=== PATIENT | female | born 1950 | race Two or more races ===

== ENCOUNTER 2018-10-08 23:16 | Emergency (ER) | payer OTHER ==
[~2018-10-08] VITALS: Ht 149.9 cm; Wt 67.6 kg
[2018-10-08] MEDS ORDERED: CALCIUM600 MG (23:46)
[2018-10-08] MEDS ORDERED: NEURONTIN300 MG (23:47)
[2018-10-08] MEDS ORDERED: ZOCOR20 MG (23:47)
[2018-10-08] MEDS ORDERED: VITAMIN D31000 UNI2 (23:47)
[2018-10-08] MEDS ORDERED: ALENDRONATE SOD35 MG (23:48)
[2018-10-09] MEDS ORDERED: VASOFLEX FORTE1 EACH PO (01:38)
== END 2018-10-09 02:27 | disposition home or self-care (01) ==
LOC: ER 23:16
DX: R25.2 Cramp and spasm (principal)

== ENCOUNTER 2019-01-16 22:05 | Inpatient (IN) | payer OTHER ==
[~2019-01-16] VITALS: Ht 149.9 cm; Wt 68.0 kg
[~2019-01-16 22:05] MED LIST: ALENDRONATE SOD35 MG; CALCIUM600 MG; NEURONTIN300 MG; VASOFLEX FORTE1 EACH PO; VITAMIN D31000 UNI2; ZOCOR20 MG
[2019-01-23] MEDS ORDERED: ULTRACET PO (13:56)
[2019-01-23] MEDS ORDERED: AMOX1TAB5 PO (13:56)
[2019-01-23] MEDS ORDERED: MAXFE CAPLET1 EACH PO (14:02)
== END 2019-01-23 17:10 | disposition home or self-care (01) | DRG 341 ==
LOC: ER 22:05 → SURG 01-17 02:09 → ICU 01-17 02:09 → SURH 01-17 02:09 → ICU 01-17 21:00 → SURG 01-20 14:20 → SURH 01-20 16:14
PROVIDERS: ADMIT Surgery
PROC: 0WJG0ZZ Inspection of Peritoneal Cavity, Open Approach (ICD-10-PCS; 2019-01-17)
PROC: B246ZZZ Ultrasonography of Right and Left Heart (ICD-10-PCS; 2019-01-17)
PROC: BW4GZZZ Ultrasonography of Pelvic Region (ICD-10-PCS; 2019-01-17)
PROC: 0DTJ0ZZ Resection of Appendix, Open Approach (ICD-10-PCS; principal; 2019-01-17 07:00)
PROC: 30233N1 Transfusion of Nonautologous Red Blood Cells into Peripheral Vein, Percutaneous Approach (ICD-10-PCS; 2019-01-18)
DX: K35.890 Other acute appendicitis without perforation or gangrene (principal); K66.1 Hemoperitoneum; D62 Acute posthemorrhagic anemia; I95.81 Postprocedural hypotension; K66.0 Peritoneal adhesions (postprocedural) (postinfection); N20.0 Calculus of kidney; E87.6 Hypokalemia

== ENCOUNTER 2021-02-14 01:39 | Emergency (ER) | payer OTHER ==
[~2021-02-14] VITALS: Ht 152.4 cm; Wt 63.5 kg
[~2021-02-14 01:39] MED LIST changes: +AMOX1TAB5 PO; +MAXFE CAPLET1 EACH PO; +ULTRACET PO
[2021-02-14] MEDS ORDERED: ATACAND HCT 321 EAC1 (01:55)
== END 2021-02-14 03:43 | disposition home or self-care (01) ==
LOC: ER 01:39
DX: S80.02XA Contusion of left knee, initial encounter (principal); M25.562 Pain in left knee; W18.09XA Striking against other object with subsequent fall, initial encounter; Y93.89 Activity, other specified; Y92.018 Other place in single-family (private) house as the place of occurrence of the external cause; Y99.8 Other external cause status

== ENCOUNTER 2022-11-28 18:00 | Emergency (ER) | payer OTHER ==
[~2022-11-28] VITALS: Ht 152.4 cm; Wt 61.2 kg
[~2022-11-28 18:00] MED LIST changes: +ATACAND HCT 321 EAC1
== END 2022-11-28 19:07 | disposition home or self-care (01) ==
LOC: ER 18:00
DX: M54.32 Sciatica, left side (principal)

== ENCOUNTER 2023-03-18 11:05 | Emergency (ER) | payer OTHER ==
[~2023-03-18] VITALS: Ht 144.8 cm; Wt 63.5 kg
[2023-03-18] MEDS ORDERED: NORFLEX100MG PO (11:37)
[2023-03-18] MEDS ORDERED: DICLOFENAC SODI75 MG PO (11:37)
== END 2023-03-18 11:47 | disposition home or self-care (01) ==
LOC: ER 11:05
DX: M54.50 Low back pain, unspecified (principal); I10 Essential (primary) hypertension

== ENCOUNTER 2023-05-29 11:06 | Emergency (ER) | payer OTHER ==
[~2023-05-29] VITALS: Ht 162.6 cm; Wt 59.0 kg
[~2023-05-29 11:06] MED LIST changes: +DICLOFENAC SODI75 MG PO; +NORFLEX100MG PO
[2023-05-29] MEDS ORDERED: ALENDRONATE SOD35 MG PO (11:33)
== END 2023-05-29 21:23 | disposition home or self-care (01) ==
LOC: ER 11:06
DX: R25.2 Cramp and spasm (principal); E86.0 Dehydration

== ENCOUNTER 2023-11-25 19:19 | Emergency (ER) | payer OTHER ==
[~2023-11-25] VITALS: Ht 162.6 cm; Wt 61.2 kg
[~2023-11-25 19:19] MED LIST changes: +ALENDRONATE SOD35 MG PO
[2023-11-25] MEDS ORDERED: ATACAND HCT 321 EAC1 (19:53)
[2023-11-25 23:57] LABS: HEMATOCRIT 39.7 % (36.0-45.00); HEMOGLOBIN 13.6 g/dL (12.0-15.00); MEAN CELL VOLUME 101.5 fL (80.00-100.00); MEAN CORPUSCULAR HEMOGLOBIN 34.7 pg (27.00-32.0); MEAN CORPUSCULAR HGB CONC 34.2 g/dl (32.0-36.0); PLATELET COUNT 184 K/uL (150-450); RED BLOOD COUNT 3.91 M/uL (4.00-6.00)
[2023-11-26 00:08] LABS: CALCIUM 9.1 mg/dL (8.5-10.1); CREATININE SERUM 0.87 mg/dL (0.55-1.02); GFR 63.47; POTASSIUM 3.65 mEq/L (3.5-5.1)
== END 2023-11-26 03:46 | disposition home or self-care (01) ==
LOC: ER 19:19
PROVIDERS: General Practice
DX: G62.9 Polyneuropathy, unspecified (principal); I10 Essential (primary) hypertension; E78.00 Pure hypercholesterolemia, unspecified

== ENCOUNTER 2023-12-09 11:58 | Outpatient (CLI) | payer OTHER ==
[2023-12-09 12:39] LABS: PH,URINE 6.5 (5.0-8.0); URINE APPEARANCE Clear; URINE BILIRRUBIN Negative (NEGATIVE); URINE BLOOD Negative; URINE COLOR Yellow; URINE GLUCOSE Negative (NEGATIVE); URINE LEUKOCYTE Trace; URINE NITRATE Negative; URINE PROTEIN Negative (NEGATIVE); URINE UROBILINOGEN 0.2 E.U./dl
[2023-12-09 12:40] LABS: URINE BACTERIA 156.2 uL (0.0-1933); URINE RBC 2.4 uL (0.0-20.8); URINE WBC 4.7 uL (0.0-23.2)
[2023-12-09 12:59] LABS: HEMOGLOBIN 13.6 g/dL (12.0-15.00); MEAN CELL VOLUME 101.2 fL (80.00-100.00); MEAN CORPUSCULAR HEMOGLOBIN 34.5 pg (27.00-32.0); PLATELET COUNT 177 K/uL (150-450); RED BLOOD COUNT 3.95 M/uL (4.00-6.00); RED CELL DISTRIBUTION WIDTH 13.1 % (11.5-14.5)
[2023-12-09 13:22] LABS: BILIRUBIN TOTAL 1.35 mg/dL (0.3-1.2); CALCIUM 9.3 mg/dL (8.5-10.1); CHOL HDL RATIO 2.3 (0-5.0); CREATININE SERUM 0.69 mg/dL (0.55-1.02); GFR 82.94; GLOBULINA 3.2 G/DL (2.4-3.5); POTASSIUM 3.69 mEq/L (3.5-5.1); TOTAL PROTEIN 7.2 gm/dL (6.4-8.2); TSH 1.2 uIU/mL (0.358-3.74)
== END 2023-12-09 11:59 | disposition home or self-care (01) ==
LOC: LAB 11:58
PROVIDERS: ATTEND Internal Medicine
DX: D64.9 Anemia, unspecified (principal); E11.9 Type 2 diabetes mellitus without complications; E78.00 Pure hypercholesterolemia, unspecified; N39.0 Urinary tract infection, site not specified; E03.8 Other specified hypothyroidism; Z12.11 Encounter for screening for malignant neoplasm of colon; E55.9 Vitamin D deficiency, unspecified

== ENCOUNTER 2023-12-10 13:21 | Outpatient (CLI) | payer OTHER | END 2023-12-10 13:22 | disposition home or self-care (01) | LOC: NUCLEAR 13:21 | PROVIDERS: ATTEND Internal Medicine | DX: M81.0 Age-related osteoporosis without current pathological fracture (principal) ==

== ENCOUNTER 2023-12-10 13:54 | Outpatient (CLI) | payer OTHER ==
[2023-12-10 14:25] LABS: ob NEGATIVE (NEGATIVE)
== END 2023-12-10 13:59 | disposition home or self-care (01) ==
LOC: LAB 13:54
PROVIDERS: ATTEND Internal Medicine
DX: D64.9 Anemia, unspecified (principal); E11.9 Type 2 diabetes mellitus without complications; E78.00 Pure hypercholesterolemia, unspecified; N39.0 Urinary tract infection, site not specified; E03.8 Other specified hypothyroidism; Z12.11 Encounter for screening for malignant neoplasm of colon; E55.9 Vitamin D deficiency, unspecified

== ENCOUNTER 2023-12-31 12:42 | Emergency (ER) | payer OTHER ==
[~2023-12-31] VITALS: Ht 162.6 cm; Wt 59.0 kg
[2023-12-31] MEDS ORDERED: 0.9 % SODIUM CHLORIDE 500 ML IV ONE (15:30)
[2023-12-31] MEDS ORDERED: FAMOTIDINE/PF 20 MG/2 ML VIAL IV ONE (15:30)
[2023-12-31] MEDS ORDERED: ONDANSETRON HCL 2 MG/ML VIAL IV ONE (15:30)
[2023-12-31 16:18] LABS: HEMATOCRIT 39.7 % (36.0-45.00); HEMOGLOBIN 13.6 g/dL (12.0-15.00); MEAN CELL VOLUME 100.6 fL (80.00-100.00); MEAN CORPUSCULAR HEMOGLOBIN 34.3 pg (27.00-32.0); MEAN CORPUSCULAR HGB CONC 34.1 g/dl (32.0-36.0); PLATELET COUNT 184 K/uL (150-450); RED BLOOD COUNT 3.95 M/uL (4.00-6.00); RED CELL DISTRIBUTION WIDTH 13.2 % (11.5-14.5)
[2023-12-31 16:45] LABS: ALBUMIN 3.7 gm/dL (3.4-5.0); BILIRUBIN TOTAL 1.7 mg/dL (0.3-1.2); CALCIUM 9.4 mg/dL (8.5-10.1); CREATININE SERUM 0.73 mg/dL (0.55-1.02); GFR 77.72; GLOBULINA 3.8 G/DL (2.4-3.5); POTASSIUM 3.25 mEq/L (3.5-5.1); TOTAL PROTEIN 7.5 gm/dL (6.4-8.2)
[2023-12-31 17:24] LABS: PH,URINE 5.5 (5.0-8.0); URINE APPEARANCE Cloudy; URINE BILIRRUBIN Small (NEGATIVE); URINE BLOOD Negative; URINE COLOR Dark Yellow; URINE GLUCOSE Negative (NEGATIVE); URINE LEUKOCYTE Small; URINE NITRATE Negative; URINE PROTEIN Negative (NEGATIVE)
[2023-12-31 17:27] LABS: URINE BACTERIA 1356.8 uL (0.0-1933); URINE EPITHELIAL CELLS 30.1 uL (0.0-38.8); URINE RBC 52.7 uL (0.0-20.8); URINE WBC 10.2 uL (0.0-23.2)
[2023-12-31] MEDS ORDERED: PEPCID AC20 MG PO (18:46)
[2023-12-31] MEDS ORDERED: ONDANSETRON HCL4 MG PO (18:46)
== END 2023-12-31 18:58 ==
LOC: ER 12:42
PROVIDERS: Nurse Practitioner Family
DX: R10.84 Generalized abdominal pain (principal); E78.49 Other hyperlipidemia; I10 Essential (primary) hypertension; Z20.822 Contact with and (suspected) exposure to COVID-19; K57.30 Diverticulosis of large intestine without perforation or abscess without bleeding; N20.0 Calculus of kidney
CPT/HCPCS: 36415; 74176; 96365; 96366; 99284; J2405; J3490; J7042

== ENCOUNTER 2024-04-22 10:04 | Outpatient (CLI) | payer OTHER ==
[~2024-04-22 10:04] MED LIST changes: +ONDANSETRON HCL4 MG PO; +PEPCID AC20 MG PO
[2024-04-22 10:57] LABS: URINE BILIRRUBIN Negative (NEGATIVE); URINE BLOOD Negative; URINE COLOR Yellow; URINE GLUCOSE Negative (NEGATIVE); URINE LEUKOCYTE Moderate; URINE NITRATE Negative; URINE PROTEIN Negative (NEGATIVE)
[2024-04-22 11:01] LABS: URINE BACTERIA 274.6 uL (0.0-1933); URINE EPITHELIAL CELLS 77.7 uL (0.0-38.8); URINE RBC 6.8 uL (0.0-20.8); URINE WBC 21.8 uL (0.0-23.2)
[2024-04-22 11:03] LABS: HEMATOCRIT 37.7 % (36.0-45.00); MEAN CELL VOLUME 103.1 fL (80.00-100.00); MEAN CORPUSCULAR HEMOGLOBIN 35.4 pg (27.00-32.0); MEAN CORPUSCULAR HGB CONC 34.4 g/dl (32.0-36.0); PLATELET COUNT 165 K/uL (150-450); RED BLOOD COUNT 3.66 M/uL (4.00-6.00); RED CELL DISTRIBUTION WIDTH 12.9 % (11.5-14.5)
[2024-04-22 11:04] LABS: URINE APPEARANCE CLEAR
[2024-04-22 12:11] LABS: ALBUMIN 3.6 gm/dL (3.4-5.0); BILIRUBIN TOTAL 0.9 mg/dL (0.3-1.2); CALCIUM 9.1 mg/dL (8.5-10.1); CHOL HDL RATIO 2.4 (0-5.0); CREATININE SERUM 0.71 mg/dL (0.55-1.02); GFR 80.04; GLOBULINA 3.3 G/DL (2.4-3.5); TOTAL PROTEIN 6.9 gm/dL (6.4-8.2); TSH 1.27 uIU/mL (0.358-3.74)
== END 2024-04-22 10:09 | disposition home or self-care (01) ==
LOC: LAB 10:04
PROVIDERS: ATTEND Internal Medicine
DX: D64.9 Anemia, unspecified (principal); E11.9 Type 2 diabetes mellitus without complications; E78.00 Pure hypercholesterolemia, unspecified; N39.0 Urinary tract infection, site not specified; E03.8 Other specified hypothyroidism; E03.9 Hypothyroidism, unspecified; E53.8 Deficiency of other specified B group vitamins

== ENCOUNTER 2024-06-13 22:47 | Emergency (ER) | payer OTHER ==
[~2024-06-13] VITALS: Ht 162.6 cm; Wt 53.1 kg
[2024-06-14] MEDS ORDERED: FAMOTIDINE/PF 20 MG in 0.9 % SODIUM CHLORIDE 8 ML IV PUSH STA (00:10)
[2024-06-14] MEDS ORDERED: KETOROLAC TROMETHAMINE 30 MG VIAL IV ONE (00:15)
[2024-06-14] MEDS ORDERED: ONDANSETRON HCL 2 MG/ML VIAL IV ONE (00:15)
[2024-06-14] MEDS ORDERED: 0.9 % SODIUM CHLORIDE 1,000 ML IV SCH (00:15)
[2024-06-14] MEDS ORDERED: KETOROLAC TROMETHAMINE 30 MG VIAL ONE (00:17)
[2024-06-14] MEDS ORDERED: ONDANSETRON HCL 2 MG/ML VIAL ONE (00:17)
[2024-06-14] MEDS ORDERED: FAMOTIDINE/PF 20 MG/2 ML VIAL ONE (00:17)
[2024-06-14 00:58] LABS: BILIRUBIN TOTAL 1.17 mg/dL (0.3-1.2); CALCIUM 9.1 mg/dL (8.5-10.1); CREATININE SERUM 0.88 mg/dL (0.55-1.02); GFR 62.47; GLOBULINA 3.6 G/DL (2.4-3.5); HEMATOCRIT 40.3 % (36.0-45.00); HEMOGLOBIN 13.9 g/dL (12.0-15.00); MEAN CELL VOLUME 103.8 fL (80.00-100.00); MEAN CORPUSCULAR HEMOGLOBIN 35.8 pg (27.00-32.0); MEAN CORPUSCULAR HGB CONC 34.5 g/dl (32.0-36.0); PLATELET COUNT 184 K/uL (150-450); POTASSIUM 3.64 mEq/L (3.5-5.1); RED BLOOD COUNT 3.89 M/uL (4.00-6.00); RED CELL DISTRIBUTION WIDTH 13.1 % (11.5-14.5); TOTAL PROTEIN 7.6 gm/dL (6.4-8.2)
[2024-06-14 01:00] LABS: URINE APPEARANCE Clear; URINE BILIRRUBIN Negative (NEGATIVE); URINE BLOOD Negative; URINE COLOR Yellow; URINE GLUCOSE Negative (NEGATIVE); URINE KETONE Negative (NEGATIVE); URINE LEUKOCYTE Trace; URINE NITRATE Negative; URINE PROTEIN Negative (NEGATIVE)
[2024-06-14 01:03] LABS: URINE BACTERIA 127.2 uL (0.0-1933); URINE EPITHELIAL CELLS 9.4 uL (0.0-38.8); URINE RBC 7.1 uL (0.0-20.8); URINE WBC 9.1 uL (0.0-23.2)
[2024-06-14 01:08] LABS: URINE CAST 0.15 uL (0.0-1.40)
[2024-06-14] MEDS ORDERED: METRONIDAZOLE500 MG PO (02:50)
[2024-06-14] MEDS ORDERED: LEVSIN/SL0.125 MG SL (02:50)
[2024-06-14] MEDS ORDERED: PEPCID AC20 MG PO (02:50)
[2024-06-14] MEDS ORDERED: METRONIDAZOLE/SODIUM CHLORIDE 500 MG/100 ML PIGGYBACK IV ONE ×2 (02:51→03:00)
== END 2024-06-14 04:34 | disposition home or self-care (01) ==
LOC: ER 22:48
PROVIDERS: General Practice
DX: K52.89 Other specified noninfective gastroenteritis and colitis (principal); I10 Essential (primary) hypertension; K57.32 Diverticulitis of large intestine without perforation or abscess without bleeding; N20.1 Calculus of ureter
CPT/HCPCS: 36415; 74176; 96365; 96366; 99284; J1885; J2405; J3490; J7030

== ENCOUNTER 2024-09-10 03:41 | Emergency (ER) | payer OTHER ==
[~2024-09-10] VITALS: Ht 162.6 cm; Wt 63.5 kg
[~2024-09-10 03:41] MED LIST changes: +LEVSIN/SL0.125 MG SL; +METRONIDAZOLE500 MG PO
[2024-09-10 03:49] VITALS: BP 126/66; O2SAT 99
[2024-09-10] MEDS ORDERED: PROMETHAZINE HCL 25 MG/ML AMPUL IM STA (04:31)
[2024-09-10] MEDS ORDERED: ORPHENADRINE CITRATE 30 MG/ML AMPUL IV STA (04:32)
[2024-09-10] MEDS ORDERED: MEPERIDINE HCL/PF 25 MG/ML VIAL IM STA (04:33)
[2024-09-10] MEDS ORDERED: 0.9 % SODIUM CHLORIDE 500 ML IV ONE (04:45)
[2024-09-10 06:22] LABS: HEMATOCRIT 37.4 % (36.0-45.00); HEMOGLOBIN 13.2 g/dL (12.0-15.00); MEAN CELL VOLUME 103.2 fL (80.00-100.00); MEAN CORPUSCULAR HEMOGLOBIN 36.3 pg (27.00-32.0); MEAN CORPUSCULAR HGB CONC 35.2 g/dl (32.0-36.0); PLATELET COUNT 168 K/uL (150-450); RED BLOOD COUNT 3.63 M/uL (4.00-6.00); RED CELL DISTRIBUTION WIDTH 13.3 % (11.5-14.5)
[2024-09-10 06:31] LABS: INR 1.1; PARTIAL THROMBOPLASTIN TIME 27.2 SECONDS (22.0-34.0); PROTHROMBIN TIME 11.9 SECONDS (9.0-11.5)
[2024-09-10 06:38] LABS: ALBUMIN 3.7 gm/dL (3.4-5.0); BILIRUBIN TOTAL 0.92 mg/dL (0.3-1.2); CALCIUM 8.9 mg/dL (8.5-10.1); CREATININE SERUM 0.71 mg/dL (0.55-1.02); GFR 80.04; GLOBULINA 3.3 G/DL (2.4-3.5); POTASSIUM 3.47 mEq/L (3.5-5.1)
[2024-09-10] MEDS ORDERED: MECLIZINE HCL 25 MG TABLET PO STA (08:07)
== END 2024-09-10 10:22 | disposition home or self-care (01) ==
LOC: ER 03:43
PROVIDERS: General Practice
DX: G43.909 Migraine, unspecified, not intractable, without status migrainosus (principal); R11.10 Vomiting, unspecified
CPT/HCPCS: 36415; 70450; 93005; 96365; 96366; 96372; 99284; J2250; J2360; J7030

== ENCOUNTER → 2025-03-09 | Emergency (ER) | payer OTHER ==
[~2025-03-09] VITALS: Ht 162.6 cm; Wt 59.0 kg
[~2025-03-09] MED LIST changes: +CANDESARTAN-HC1 EACH; +SIMVASTATIN5 MG
== END | disposition left against medical advice (07) ==
LOC: ER 21:42
DX: Z53.21 Procedure and treatment not carried out due to patient leaving prior to being seen by health care provider (principal)